=== PATIENT | female | born 1940 | race Caucasian/White ===

== ENCOUNTER → 2016-08-28 | Outpatient (CLI) | payer MEDICARE ==
[~2016-08-28] MED LIST: ACET-2321 PO; ALEN70TA48 PO; AMLO5TAB2 PO; ASPI-611 PO; CETI10CA19 PO; FLUT9.9S NAS; GUAI120015 PO; LOSA50TA52 PO; METF500T4 PO; OMEP20TA2 PO
== END ==
LOC: WC.BC 09:07
DX: Z12.31 Encounter for screening mammogram for malignant neoplasm of breast (principal); N64.59 Other signs and symptoms in breast
CPT/HCPCS: 77063; G0202